=== PATIENT | male | born 1995 ===

== ENCOUNTER 2024-06-25 18:32 | Emergency (ER) | payer SELFPAY ==
[2024-06-25] MEDS: Mupirocin Oint 22 GM Tube TOP ONE (20:15)
[2024-06-25] MEDS: Bacitracin Oint 1 GM U/D Packet TOP ONE (20:16)
[2024-06-25] MEDS: Sulfamethoxazole/Trimethoprim 800-160 MG Tab PO ONE (20:26)
== END 2024-06-25 20:27 | disposition home or self-care (01) ==
LOC: DL.ED 18:32
DX: L03.012 Cellulitis of left finger (principal); L01.00 Impetigo, unspecified
CPT/HCPCS: 26010; 99283; 99283-25; A9270-GY

== ENCOUNTER 2024-08-08 10:38 | Emergency (ER) | payer SELFPAY | END 2024-08-08 12:17 | disposition home or self-care (01) | LOC: DL.ED 10:38 | DX: S60.211A Contusion of right wrist, initial encounter (principal); W22.8XXA Striking against or struck by other objects, initial encounter | CPT/HCPCS: 73110-RT; 99282; 99283 ==